=== PATIENT | female | born 1975 | race Caucasian/White ===

== ENCOUNTER 2021-03-19 12:45 | Emergency (ER) | payer OTHER ==
[2021-03-19 13:11] VITALS: BP 112/72; PULSE 92; TEMP 98.4; BMI 18.2
[2021-03-19] MEDS ORDERED: DIPHTH,PERTUSS(ACELL),TET 0.5 ML DISP.SYRIN IM ONE ×2 (13:13→13:24)
[2021-03-19] MEDS ORDERED: LIDO 2%/EPI 1:200000 PRESRVFRE (20 ML SDVIAL) ONE (14:47)
== END 2021-03-19 15:14 | disposition home or self-care (01) ==
LOC: FER 12:45
PROC: 3E0234Z Introduction of Serum, Toxoid and Vaccine into Muscle, Percutaneous Approach (ICD-10-PCS; principal; 2021-03-19)
DX: S01.419A Laceration without foreign body of unspecified cheek and temporomandibular area, initial encounter (principal)
CPT/HCPCS: 90471; 90715; 99283-25